=== PATIENT | female | born 1965 | race Caucasian/White ===

== ENCOUNTER 2024-01-31 06:03 | Observation (INO) ==
--- NOTE | 2024-01-10 12:50 | PAT Medication Instructions ---
Medication Instructions Date of Service January 10, 2024 Home Medications atorvastatin 20 mg tablet (Lipitor) 20 mg PO QAM levothyroxine 88 mcg tablet (Synthroid) 88 mcg PO Q OTHER DAY pregabalin 150 mg capsule (Lyrica) 150 mg PO TID tramadol 50 mg tablet 50 mg PO Q6H PRN Pain budesonide 160 mcg-glycopyr 9 mcg-formot 4.8 mcg/actuation HFA inhaler (Breztri Aerosphere) 2 inh inhalation BID levothyroxine 100 mcg tablet (Synthroid) 100 mcg PO Q OTHER DAY celecoxib 200 mg capsule (Celebrex) 200 mg PO BID esomeprazole magnesium 40 mg capsule,delayed release (Nexium) 20 mg PO QAM hydrocodone 5 mg-acetaminophen 325 mg tablet 1 tab PO Q6H PRN Pain lorazepam 0.5 mg tablet 0.5 mg PO TID PRN Anxiety ASK your surgeon for instructions celecoxib 200 mg capsule (Celebrex) 200 mg PO BID Take morning of surgery With a small sip of water, OTHERWISE NOTHING TO EAT OR DRINK AFTER MIDNIGHT: atorvastatin 20 mg tablet (Lipitor) 20 mg PO QAM pregabalin 150 mg capsule (Lyrica) 150 mg PO TID tramadol 50 mg tablet 50 mg PO Q6H PRN Pain (if needed) budesonide 160 mcg-glycopyr 9 mcg-formot 4.8 mcg/actuation HFA inhaler (Breztri Aerosphere) 2 inh inhalation BID levothyroxine (Synthroid) esomeprazole magnesium 40 mg capsule,delayed release (Nexium) 20 mg PO QAM hydrocodone 5 mg-acetaminophen 325 mg tablet 1 tab PO Q6H PRN Pain (if needed) lorazepam 0.5 mg tablet 0.5 mg PO TID PRN Anxiety (if needed) Take evening before surgery pregabalin 150 mg capsule (Lyrica) 150 mg PO TID tramadol 50 mg tablet 50 mg PO Q6H PRN Pain (if needed) budesonide 160 mcg-glycopyr 9 mcg-formot 4.8 mcg/actuation HFA inhaler (Breztri Aerosphere) 2 inh inhalation BID celecoxib 200 mg capsule (Celebrex) 200 mg PO BID hydrocodone 5 mg-acetaminophen 325 mg tablet 1 tab PO Q6H PRN Pain (if needed) lorazepam 0.5 mg tablet 0.5 mg PO TID PRN Anxiety (if needed) Other Notes If you have any questions please call us at [phone] or [phone] or [phone] or [phone]
--- NOTE | 2024-01-16 12:58 | Anesthesiology Consultation ---
Date of Service January 16, 2024 Assessment & Plan (1) Encounter for pre-operative examination: - Infectious disease screening: Per assessment on 01/16/24: No known recent infectious disease contacts or current infectious disease symptoms. - Patient acceptable risk for surgery pending surgeon-ordered PCP preop evaluation ([facility], appt 01/23). Chart Review Chart Review: Patient seen in Pre Admission Testing Teaching & Discussion Pre-Anesthesia Teaching/Discussion Notes: Instructed NPO after midnight before s urgery,except medications with 15 cc of water. Medication instructions provided according to the PAT guidelines. History Surgery Operation Date: 01/31/24 10:05 Proposed Procedures p C4-C5, C5-C6 Anterior Cervical Discectomy and Fusion, Spinal Cord Monitoring - Roland Gutierrez DO Height/Weight Height: 5 ft 6.5 in Weight: 65.5 kg Allergies Allergy/AdvReac Type Severity Reaction Status Date / Time No Known Allergies Allergy Verified 01/10/24 09:39 Medications Home Medications Medication Instructions Recorded Confirmed Last Taken atorvastatin 20 mg tablet (Lipitor) 20 mg PO QAM 04/23/23 01/10/24 Unknown levothyroxine 88 mcg tablet 88 mcg PO Q OTHER DAY 04/23/23 01/10/24 Unknown (Synthroid) pregabalin 150 mg capsule (Lyrica) 150 mg PO TID 04/23/23 01/10/24 Unknown tramadol 50 mg tablet 50 mg PO Q6H PRN Pain 04/23/23 01/10/24 Unknown budesonide 160 mcg-glycopyr 9 2 inh inhalation BID 07/03/23 01/10/24 Unknown mcg-formot 4.8 mcg/actuation HFA inhaler (Breztri Aerosphere) levothyroxine 100 mcg tablet 100 mcg PO Q OTHER DAY 07/03/23 01/10/24 Unknown (Synthroid) celecoxib 200 mg capsule (Celebrex) 200 mg PO BID 01/10/24 01/10/24 Unknown esomeprazole magnesium 40 mg 20 mg PO QAM 01/10/24 01/10/24 Unknown capsule,delayed release (Nexium) hydrocodone 5 mg-acetaminophen 325 1 tab PO Q6H PRN Pain 01/10/24 01/10/24 Unknown mg tablet lorazepam 0.5 mg tablet 0.5 mg PO TID PRN Anxiety 01/10/24 01/10/24 Unknown Past Medical History Medical History Acid reflux Anxiety Carpal tunnel syndrome Cervical facet joint syndrome Cervical spondylosis Cervicalgia COPD (chronic obstructive pulmonary disease) "controlled" Diverticular disease Benny thyroiditis "controlled" History of COVID-2020 History of kidney stones passed on own Hx of sciatica Hypothyroid Lumbar pain hx of 3 nerve ablations Migraine Osteoarthritis Exercise / Class Metabolic Activity II 4-5 Yardwork/Stairs/Walk up hill (one FS: No CP, no SOB) Past Family History Family History Father Heart disease Hypertension Mother Heart disease Daughter History of anesthesia reaction got hives and itching, given benadryl post op and was then okay Past Surgical History Surgical History H/O hemorrhoidectomy H/O tubal ligation History of bilateral tubal ligation History of colonoscopy History of dilatation and curettage History of endoscopic sinus surgery History of tooth extraction Past Anesthesia History No Hx of Anesthesia Complications * Daughter: had redness/itchy in reaction to medication given to her prior to going back for surgery- resolved with Benadryl History of PONV No Hx of PONV and No Hx of Motion Sickness Social History Smoking Status: Former smoker Do You Dip or Chew Tobacco: No Smoking End Date: Quit 12 yrs ago Hx Alcohol Use: Yes Alcohol type: wine alcohol intake frequency: a few times a month (At month) Hx Substance Use: No substance use type: does not use Review of Systems Patient denies chest pain, shortness of breath, dyspnea on exertion, fever, chills, cough, wheezing, palpitations. Physical Exam Vital Signs BP 113/63 P 80 TEMP 98.2 SP02 99%RA RESP 18 Physical Mildly decreased cervical extension range of motion. Full TMJ range of motion. TMD > 3.5 finger breaths Mallampati Score II Dentition: full upper plate Lungs: clear throughout to auscultation Cardiac: regular rate and rhythm, no murmurs noted Spine: normal Carotid arteries: negative bruit Extremities: no LE edema Lab Results Anesthesia Preop Results Results Anesthesia Widget: WBC 10.65 K/ul (4.8-10.8) 01/16/24 Hgb 14.7 g/dl (12.0-16.0) 01/16/24 Hct 43.6 % (37.0-47.0) 01/16/24 Plt 196 K/uL (130-400) 01/16/24 Na 141 mmol/L (136-145) 01/16/24 K 3.9 mmol/L (3.5-5.1) 01/16/24 Cl 106 mmol/L (98-107) 01/16/24 CO2 30 mmol/L (21-32) 01/16/24 BUN 15 mg/dl (6-23) 01/16/24 Creat 0.64 mg/dl (0.6-1.2) 01/16/24 Glucose Level 74 mg/dl (70-99(Fasting)) 01/16/24 PT 10.3 Seconds (9.0-12.0) 01/16/24 PTT 25 Seconds (21-31) 01/16/24 INR 0.9 (0.9-1.1) 01/16/24 Urine Color Yellow 01/16/24 Urine Appearance Clear (Clear) 01/16/24 Urine pH 6.5 (4.5-7.5) 01/16/24 Urine Specific [place] 1.005 (1.000-1.030) 01/16/24 Urine Protein Negative (Negative) 01/16/24 Urine Glucose (UA) Negative (Negative) 01/16/24 Urine Ketones Negative (Negative) 01/16/24 Urine Blood Negative (Negative) 01/16/24 Urine Nitrite Negative (Negative) 01/16/24 Urine Bilirubin Negative (Negative) 01/16/24 Urine Urobilinogen Negative (Negative) 01/16/24 Urine Leukocyte Esterase Negative (Negative) 01/16/24 Blood Type B Positive 01/16/24 Antibody Screen NEGATIVE 01/16/24 Testing Laboratory Results TSH (01/01/24): 0.42 Electrocardiogram Date: 01/16/24 NSR at 75bpm. LAFB. Chest X-Ray Date: 01/16/24 FINDINGS: The lungs are hyperexpanded. The lungs are clear. Cardiac silhouette is normal in size. No pleural effusions. No pneumothorax. IMPRESSION: No acute process.
--- OUTSIDE RECORDS SUMMARY | 2024-01-31 06:09 | External Medical Summary | Summary of Care ---
Author Name Unknown Organization [facility] Address [address] [facility] [place] [address] Phone [phone] Care Team Providers Care Slackline Operator Name Role Phone Leander Paredes MD Primary Care Provider [phone] Reason for Visit * Reason Comments pre-op exam Pt here for pre-op e xam for UOC for Dr Gutierrez, for back surgery on 01/31/24. 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; Migraine with aura and without status migrainosus, not intractable; BREANNE (generalized anxiety disorder); Dyslipidemia; Generalized osteoarthritis Allergies No known active allergiesdocumented as of this encounter (statuses as of 01/24/2024) Medications Medication Sig Dispensed Refills Start Date End Date Status Celecoxib 200 MG Oral Capsule (CeleBREX) TAKE 1 Capsule BY MOUTH TWICE DAILY FOR INFLAMMATION AND PAIN 10/02/2023 Active Lidocaine 5 % External Patch (Lidoderm) APPLY 1 PATCH BY TOPICAL ROUTE ONCE DAILY (MAY WEAR UP TO 12HOURS.) 09/09/2023 Active Atorvastatin Calcium 20 MG Oral Tablet (Lipitor)Indication s:Dyslipidemia Take 1 Tablet by mouth in the morning. In the morning.. 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 ALTERNATE WITH 88MCG. 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 ALTERNATE WITH 100MCG 45 Tablet 3 12/04/2023 Active Amoxicillin-Pot Clavulanate 875-125 MG Oral Tablet (Augmentin)Indicati ons:Bronchitis, complicated,Acute maxillary sinusitis, recurrence not specified Take 1 Tablet by mouth in the morning and 1 Tablet before bedtime. 20 Tablet 12/05/2023 Active predniSONE 20 MG Oral Tablet (Deltasone)Indicati ons:Bronchitis, complicated,Acute maxillary sinusitis, recurrence not specified Take 2 Tablets by mouth in the morning. 10 Tablet 12/05/2023 Active traMADol HCl 50 MG Oral Tablet (Ultram)Indications :DDD (degenerative disc disease), cervical Take 1 Tablet by mouth every 6 hours as needed for Pain, Severe. 30 Tablet 12/31/2023 Active LORazepam 0.5 MG Oral Tablet (Ativan)Indications :Panic disorder Take 1 Tablet by mouth 3 times a day as needed for Anxiety. 30 Tablet 01/14/2024 Active HYDROcodone-Acetami nophen 5-325 MG Oral TabletIndications:C hronic neck pain Take 1 Tablet by mouth every 6 hours as needed for Pain, Severe. 30 Tablet 01/21/2024 Active Pregabalin 150 MG Oral Capsule (Lyrica)Indications :DDD (degenerative disc disease), cervical Take 1 Capsule by mouth in the morning and 1 Capsule at noon and 1 Capsule before bedtime. 90 Capsule 1 01/22/2024 Active Breztri Aerosphere 160-9-4.8 MCG/ACT Inhalation Aerosol (Budeson-Glycopyrro l-Formoterol)Indica tions:COPD, group B, by GOLD 2017 classification ([facility]) INHALE 2 PUFFS BY MOUTH TWICE DAILY 10.7 g 5 01/24/2024 Active Albuterol Sulfate HFA 108 (90 Base) MCG/ACT Inhalation Aerosol SolutionIndications :COPD, group B, by GOLD 2017 classification ([facility]) Inhale 2 Puffs by mouth every 6 hours as needed for Shortness of Breath. 13.4 g 1 01/24/2024 Active Breztri Aerosphere 160-9-4.8 MCG/ACT Inhalation Aerosol (Budeson-Glycopyrro l-Formoterol) INHALE 2 PUFFS BY MOUTH TWICE DAILY 10.7 g 5 11/20/2023 01/24/20 24 Discontinu ed(Refill) Breztri Aerosphere 160-9-4.8 MCG/ACT Inhalation Aerosol (Budeson-Glycopyrro l-Formoterol)Indica tions:COPD, group B, by GOLD 2017 classification ([facility]) INHALE 2 PUFFS BY MOUTH TWICE DAILY 10.7 g 5 01/24/2024 01/24/20 24 Discontinu ed(Refill) documented as of this encounter (statuses as of 01/24/2024) Active Problems Problem Noted Date Diagnosed Date BREANNE (generalized anxiety disorder) 01/01/2024 Chronic neck pain 03/21/2023 Dyslipidemia 09/24/2022 Generalized osteoarthritis 09/24/2022 COPD, group B, by GOLD 2017 classification 09/03 Overview: Per COPD GOLD Classification DDD (degenerative disc disease), cervical 2021 Diverticulosis of large intestine with hemorrhag e 09/25/2021 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 Migraine with aura and witho ut status migrainosus, not intractable documented as of this encounter (statuses as of 01/24/2024) Resolved Problems Problem Noted Date Diagnosed Date Resolved Date Acquired hypothyroidism 09/25/2021 05/0 06/2021 COPD, severity to be determined 09/25/2021 09/06/2022 Overview: Per COPD GOLD Classification Tobacco use disorder 022 documented as of this encounter (statuses as of 01/24/2024) Social History Tobacco Use Types Packs/Day Years Used Date Smoking Tobacco: Former Cigarettes 0.5 14 Smokeless Tobacco: Never Tobacco Cessation:Counseling Given: Not Answered Alcohol Use Standard Drinks/Week Comments Yes 0 (1 standard drink = 0.6 oz pur e alcohol) occaisonal Hunger Vital Sign Answer Date Recorded Within the past 12 months, y ou worried that your food would run out before you got the money to buy more. Never true 09/03/19 24 Within the past 12 months, t he food you bought just didn't last and you didn't have money to get more. Never true 09/03/2023 Childcare Answer Date Recorded Do you feel overwhelmed with taking care of a child, family member or friend? No 09/03/2023 Does your family need help f inding childcare? (Household - for ages 0-17 years) Not on file 09/03/2023 Clothing Answer Date Recorded Have you been unable to get clothing when it was really needed? No 09/03/2023 Is your family able to get c lothes or diapers when needed? (Household - for ages 0-17 years) Not on file 09/03/2023 Personal Safety Answer Date Recorded Do you feel unsafe or have concerns for your saf ety? No 09/03/2023 Do you have concerns for you r family's safety? (Household - for ages 0-17 years) Not on file 09/03/2023 Utilities Answer Date Recorded Do you have trouble paying y our heating, water, or electric bill? No 09/03/2023 Is your family able to pay t he heat, water, or electric bill? (Household - for ages 0-17 years) Not on file 09/03/2023 Does your family have access to good internet? (Household - for ages 0-17 years) Not on file 09/03/2023 Employment Status Answer Date Recorded Are you unemployed or without regular income? No 09/03/2023 Does the household have a re gular source of income? (Household - for ages 0-17 years) Not on file 09/03/2023 Social Connections Answer Date Recorded How often do you feel lonely or isolated from th ose around you? Never 09/03/2023 Financial Resource Strain Answer Date R ecorded Do you have any trouble payi ng for your medications, or do you think you might in the future? No 09/03/2023 Does your family have troubl e paying for medicine? (Household - for ages 0-17 years) Not on file 09/03/2023 Transportation Needs Answer Date Record ed READ ONLY Do you have troubl e getting a ride to medical visits or work? Never True 09/03/2023 Does your family have a hard time getting a ride to doctors visits? (Household - for ages 0-17 years) Not on file 09/03/2023 Has lack of transportation k ept you from medical appointments, meetings, work, or from getting things needed for daily living? Check all that apply. (Adult - for ages 18 years and over) Not on file 09/03/2023 Do you (or your family) have trouble finding or paying for a ride (transportation)? (Household - for ages 0-17 years) Not on file 09/03/2023 Housing Stability Answer Date Recorded Do you currently live in a s helter or have no steady place to sleep at night? No 09/03/2023 READ ONLY Do you think you a re at risk of becoming homeless? No 09/03/2023 Does your family worry about paying for your home or becoming homeless? (Household - for ages 0-17 years) Not on file 0 09/03/2023 Are you homeless or worried that you might be in the future? (Adult - for ages 18 years and over) Not on file Are you (or your family) adalid eless or worried that you might be in the future? (Household - for ages 0-17 years) Not on file Food Insecurity Answer Date Recorded Do you need food for this week? No 09/03/2023 Are you able to get enough f ood for your family? (Household - for ages 0-17 years) Not on file 09/03/2023 Does your family need food t his week? (Household - for ages 0-17 years) Not on file 09/03/2023 Do you always have enough fo od for your family? (Household - for ages 0-17 years) Not on file 09/03/2023 Sex and Gender Information Value Date Recorded Sex Assigned at Female 08/28/2022 8:07 AM EDT Gender Identity Female 08/28/2022 8:07 AM EDT Sexual Orientation Straight 08/28/2022 8: 07 AM EDT Job Start Date Occupation Industry Not on file Not on file Not on file documented as of this encounter Last Filed Vital Signs Vital Sign Reading Time Taken Comments Blood Pressure 100/64 01/24/2024 6:59 AM EDT Pulse 57 01/24/2024 6:59 AM EDT Temperature 36.7 C (98 F) 01/24/2024 6:59 AM EDT Respiratory Rate 18 01/24/2024 6:59 AM EDT Oxygen Saturation - - Inhaled Oxygen Concentration - - Weight 65.3 kg (144 lb) 01/24/2024 6:59 AM EDT Height - - Body Mass Index 22.22 10/14/2023 2:34 PM EDT documented in this encounter Plan of Treatment Upcoming Encounters Date Type Department Care Team (Late st Contact Info) Description 04/03/2024 9:20 AM EST Office Visit [facility] [address] [place] [address] Leander Paredes MD [address] [place] [address] Health Maintenance Due Date Last Done Comments Pneumococcal Vaccine: Pediatrics (0 to 5 Years) and At-Risk Patients (6 to 64 Years) (1 of 2 - PCV) 1972 Depression Screening 1978 HIV Screening 1981 Alpha-1 Antitrypsin 1984 Hepatitis C Screening 1984 DTap/Tdap Vaccines (1 - Tdap) 1985 Hepatitis B Vaccine (1 of 3 - 19+ 3-dose series) 1985 Pap Smear 11/25/1987 Cervical Cancer Screening 1996 HPV/Co-Test 1996 Mammogram 2006 Cologuard 11/25/2011 Colonoscopy 11/25/2011 Colorectal Cancer Screening 11/25/2011 Fecal Occult Blood Test 11/25/2011 Sigmoidoscopy 11/25/2011 *COPD SEVERITY VERIFIED BY PFT 09/29/2021 COVID-19 Vaccine ( season) 2023 10/21/2020, 09/23/2020 Influenza Vaccine (FLU shot) (#1) 2024 04/12/2020 O2 ASSESSMENT COMPLETED IN PAST YEAR FOR COPD 10/13/2024 10/14/2023 TSH 12/31/2024 01/01/2024, 09/24, 09/03/2023, Additional history exists Lipid Panel 12/31/2028 01/01/2024, 11/2023, 09/25/2021 Zoster Vaccines Completed 06/21/2020, 04/12/2020 HPV (Gardasil) Vaccine Aged Out No lo nger eligible based on patient's age to complete this topic MENINGOCOCCAL (MENACTRA/MENVEO) Aged Out No longer eligible based on patient's age to complete this topic documented as of this encounter Medical Devices Not on filedocumented as of this encounter Visit Diagnoses Diagnosis Preop examination- Primary Preoperative examination, unspecified COPD, group B, by GOLD 2017 classification (HCC) Chronic neck pain Cervicalgia 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
--- OUTSIDE RECORDS SUMMARY | 2024-01-31 06:09 | External Medical Summary | Summary of Care ---
Author Name Unknown Organization [facility] Address [address] [facility] [place] [address] Phone [phone] Care Team Providers Care Tab Machine Operator Name Role Phone Leander Paredes MD Primary Care Provider [phone] [phone] Encounter Details Date Type Department Care Team (Late st Contact Info) Description 01/17/2024 Orders Only Family Practice [facility] [address] [facility] [place] [address] Leander Paredes MD [address] [facility] [place] [address] Allergies No known active allergiesdocumented as of this encounter (statuses as of 01/17/2024) Medications Medication Sig Dispensed Refills Start Date End Date Status Baclofen 20 MG Oral TabletIndications: DDD (degenerative disc disease), cervical Take 1 Tablet by mouth in the morning and 1 Tablet before bedtime. 60 Tablet 1 05/09/2023 Active Pregabalin 150 MG Oral Capsule (Lyrica)Indication s:DDD (degenerative disc disease), cervical Take 1 Capsule by mouth in the morning and 1 Capsule at noon and 1 Capsule before bedtime. 90 Capsule 1 09/04/2023 Active Celecoxib 200 MG Oral Capsule (CeleBREX) TAKE 1 Capsule BY MOUTH TWICE DAILY FOR INFLAMMATION AND PAIN 10/02/2023 Active Lidocaine 5 % External Patch (Lidoderm) APPLY 1 PATCH BY TOPICAL ROUTE ONCE DAILY (MAY WEAR UP TO 12HOURS.) 09/09/2023 Active Breztri Aerosphere 160-9-4.8 MCG/ACT Inhalation Aerosol (Budeson-Glycopyrr ol-Formoterol) INHALE 2 PUFFS BY MOUTH TWICE DAILY 10.7 g 5 11/20/2023 Active Atorvastatin Calcium 20 MG Oral Tablet (Lipitor)Indicatio ns:Dyslipidemia Take 1 Tablet by mouth in the morning. In the morning.. 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 ALTERNATE WITH 88MCG. 45 Tablet 3 12/04/2023 Active Levothyroxine Sodium 88 MCG Oral Tablet (Synthroid)Indicat ions:Hypothyroidis m due to Benny's thyroiditis Take 1 Tablet by mouth every other day. ALTERNATE WITH 100MCG 45 Tablet 3 12/04/2023 Active Amoxicillin-Pot Clavulanate 875-125 MG Oral Tablet (Augmentin)Indicat ions:Bronchitis, complicated,Acute maxillary sinusitis, recurrence not specified Take 1 Tablet by mouth in the morning and 1 Tablet before bedtime. 20 Tablet 12/05/2023 Active predniSONE 20 MG Oral Tablet (Deltasone)Indicat ions:Bronchitis, complicated,Acute maxillary sinusitis, recurrence not specified Take 2 Tablets by mouth in the morning. 10 Tablet 12/05/2023 Active HYDROcodone-Acetam inophen 5-325 MG Oral TabletIndications: Chronic neck pain Take 1 Tablet by mouth every 6 hours as needed for Pain, Mild. 30 Tablet 12/18/2023 Active traMADol HCl 50 MG Oral Tablet (Ultram)Indication s:DDD (degenerative disc disease), cervical Take 1 Tablet by mouth every 6 hours as needed for Pain, Severe. 30 Tablet 12/31/2023 Active LORazepam 0.5 MG Oral Tablet (Ativan)Indication s:Panic disorder Take 1 Tablet by mouth 3 times a day as needed for Anxiety. 30 Tablet 01/14/2024 Active documented as of this encounter (statuses as of 01/17/2024) Active Problems Problem Noted Date Diagnosed Date [...] as of this encounter (statuses as of 01/17/2024) Resolved Problems Problem Noted Date Diagnosed Date Resolved Date Acquired hypothyroidism 09/25/2021 05/0 06/2021 COPD, severity to be determined 09/25/2021 09/06/2022 Overview: Per COPD GOLD Classification Tobacco use disorder 022 documented as of this encounter (statuses as of 01/17/2024) Social History Tobacco Use Types Packs/Day Years Used Date Smoking Tobacco: Former Cigarettes 0.5 14 Smokeless Tobacco: Never Alcohol Use Standard Drinks/Week Comments Yes 0 (1 standard drink = 0.6 oz pur e alcohol) occasional Hunger Vital Sign Answer Date Recorded Within [...] 09/03/2023 Does the household have a re lar source of income? (Household - for ages [...] on file documented as of this encounter Plan of Treatment Upcoming Encounters Date Type Department Care Team (Late st Contact Info) Description 01/24/2024 7:00 AM EDT Office Visit [facility] [address] [place] [address] Maikol Teran CRNP [address] [place] [address] 04/03/2024 9:20 AM EST Office Visit [facility] [address] [place] [address] Leander Paredes MD [address] [place] [address] Health Maintenance Due Date Last Done Comments Pneumococcal Vaccine: Pediatrics (0 to 5 Years) and At-Risk Patients (6 to 64 Years) (1 of 2 - PCV) 1972 Depression Screening 1978 HIV Screening 1981 Alpha-1 Antitrypsin 1984 Hepatitis C Screening 1984 DTaP,Tdap,and Td Vaccines (1 - Tdap) 1985 Hepatitis B Vaccine (1 of 3 - 19+ 3-dose series) 1985 Pap Smear 11/25/1987 Cervical Cancer Screening 1996 HPV/Co-Test 1996 Mammogram 2006 Cologuard 11/25/2011 Colonoscopy 11/25/2011 Colorectal Cancer Screening 11/25/2011 Fecal Occult Blood Test 11/25/2011 Sigmoidoscopy 11/25/2011 *COPD SEVERITY VERIFIED BY PFT 09/29/2021 *CXR OR CT FOR COPD EVER 04/19/2022 COVID-19 Vaccine ( season) 2023 10/21/2020, 09/23/2020 Influenza Vaccine (FLU shot) (#1) 2024 04/12/2020 O2 ASSESSMENT COMPLETED IN PAST YEAR FOR COPD 10/13/2024 10/14/2023 TSH 12/31/2024 01/01/2024, 09/24, 09/03/2023, Additional history exists Lipid Panel 12/31/2028 01/01/2024, 0811/2023, 09/25/2021 Zoster Vaccines Completed 06/21/2020, 04/12/2020 HPV (Gardasil) Vaccine Aged Out No lo nger eligible based on patient's age to complete this topic MENINGOCOCCAL (MENACTRA/MENVEO) Aged Out No longer eligible based on patient's age to complete this topic documented as of this encounter Medical Devices Not on filedocumented as of this encounter Procedures Procedure Name Priority Date/Time Associated Diagnosis Comments XR CHEST 2 VIEWS Routine 01/16/2024 CHEMISTRY-OUTSIDE Routine 01/16/2024 documented in this encounter Results * CHEMISTRY-OUTSIDE (01/16/2024) Not all results display below - see scan for full detail OUTSIDE LAB (SEE SCANNED REPORT) Comment:SCAN INCLUDES - PT I NR, PTT, BMP, UA, CBCD CREATININE-OUTSI DE LAB 0.64 0.6 - 1.2 MG/DL OUTSIDE LAB (SEE SCANNED REPORT) EGFR-OUTSIDE LAB 99.1 ML/MIN OUT SIDE LAB (SEE SCANNED REPORT) POTASSIUM-OUTSID E LAB 3.9 3.5 - 5.1 MMOL/L OUTSIDE LAB (SEE SCANNED REPORT) GLUCOSE-OUTSIDE LAB 74 70 - 99 MG/DL OUTSIDE LAB (SEE SCANNED REPORT) HOURS FASTING OUTSID E LAB (SEE SCANNED REPORT) TRIGLYCERIDES-OU TSIDE LAB OUTSIDE LAB (SEE SCANNED REPORT) CHOLESTEROL-OUTS ERNA LAB OUTSIDE LAB (SEE SCANNED REPORT) HDL-OUTSIDE LAB OUTS ERNA LAB (SEE SCANNED REPORT) CHOL/HDL RATIO-OUTSIDE LAB OUTSIDE LAB (SEE SCANNED REPORT) LDL (CALCULATED)-OUT SIDE LAB OUTSIDE LAB (SEE SCANNED REPORT) LDL (DIRECT MEASURE)-OUTSIDE LAB OUTSIDE LAB (SEE SCANNED REPORT) HEMOGLOBIN, F2W-YNWOWBL LAB OUTSIDE LAB (SEE SCANNED REPORT) PHOSPHORUS-OUTSI DE LAB OUTSIDE LAB (SEE SCANNED REPORT) PTH-OUTSIDE LAB OUTS ERNA LAB (SEE SCANNED REPORT) MICROALBUMIN RATIO-OUTSIDE LAB OUTSIDE LAB (SEE SCANNED REPORT) PROTEIN, UA-OUTSIDE LAB NEGATIVE NEGATIVE OUTSIDE LAB (SEE SCANNED REPORT) HGB 14.7 12.0 - 16.0 G/DL OUTSIDE LAB (SEE SCANNED REPORT) 01/16/2024 Roland Gutierrez DO LABORATORY OUTSIDE LAB (SEE SCANNED REPORT) * XR CHEST 2 VIEWS (01/16/2024) Anatomical Region Laterality Modality Chest Other 01/16/2024 Roland Gutierrez DO RADIOLOGY ( RAD GENERAL) documented in this encounter Care Teams Tab Machine Operator Relationship Specialty Start Date End Date Leander Paredes MD [address] [facility] [place] [address] PCP - General Family Medicine 09/25/21 documented as of this encounter
--- OUTSIDE RECORDS SUMMARY | 2024-01-31 06:09 | External Medical Summary | Summary of Care ---
Author Name Unknown Organization [facility] Address [address] [facility] [address] Phone [phone] Care Team Providers Care Insurance Job Titles Name Role Phone Carla Farley MD Primary Care Provider [phone] [phone] Reason for Referral * Medication Prior Authorization - Closed Specialty Diagnoses / Procedures Referred By Vincent nieto Referred To Contact Diagnoses Chronic neck pain Carla Farley MD [address] [place] [address] Referral ID Status Reason Start Date Expiration Date Visits Re quested Visits Authorized [id number] Closed 999 225 Reason for Visit * Reason Onset Date Comments Medication Refill 01/19/2024 Encounter Details Date Type Department Care Team (Late st Contact Info) Description 01/19/2024 Refill Family Practice [facility] [address] [place] [address] Carla Farley MD [address] [place] [address] Chronic neck pain Allergies No known active allergiesdocumented as of this encounter (statuses as of 01/21/2024) Medications Medication Sig Dispensed Refills Start Date End Date Status Baclofen 20 MG Oral TabletIndications :DDD (degenerative disc disease), cervical Take 1 Tablet by mouth in the morning and 1 Tablet before bedtime. 60 Tablet 1 05/09/2023 Active Pregabalin 150 MG Oral Capsule (Lyrica)Indicatio ns:DDD (degenerative disc disease), cervical Take 1 Capsule [...] Active Breztri Aerosphere 160-9-4.8 MCG/ACT Inhalation Aerosol (Budeson-Glycopyr rol-Formoterol) INHALE 2 PUFFS BY MOUTH TWICE DAILY 10.7 g 5 11/20/2023 Active Atorvastatin Calcium 20 MG Oral Tablet (Lipitor)Indicati ons:Dyslipidemia Take 1 Tablet by mouth in the morning. In the morning.. 90 Tablet 12/02/2023 Active Levothyroxine Sodium 100 MCG Oral Tablet (Levoxyl)Indicati ons:Hypothyroidis m due to Benny's thyroiditis Take 1 Tablet by mouth every other day. ALTERNATE WITH 88MCG. 45 Tablet 3 12/04/2023 Active Levothyroxine Sodium 88 MCG Oral Tablet (Synthroid)Indica tions:Hypothyroid ism due to Benny's thyroiditis Take 1 Tablet by mouth every other day. ALTERNATE WITH 100MCG 45 Tablet 3 12/04/2023 Active Amoxicillin-Pot Clavulanate 875-125 MG Oral Tablet (Augmentin)Indica tions:Bronchitis, complicated,Acute maxillary sinusitis, recurrence not specified Take 1 Tablet by mouth in the morning and 1 Tablet before bedtime. 20 Tablet 12/05/2023 Active predniSONE 20 MG Oral Tablet (Deltasone)Indica tions:Bronchitis, complicated,Acute maxillary sinusitis, recurrence not specified Take 2 Tablets by mouth in the morning. 10 Tablet 12/05/2023 Active traMADol HCl 50 MG Oral Tablet (Ultram)Indicatio ns:DDD (degenerative disc disease), cervical Take 1 Tablet by mouth every 6 hours as needed for Pain, Severe. 30 Tablet 12/31/2023 Active LORazepam 0.5 MG Oral Tablet (Ativan)Indicatio ns:Panic disorder Take 1 Tablet by mouth 3 times a day as needed for Anxiety. 30 Tablet 01/14/2024 Active HYDROcodone-Aceta minophen 5-325 MG Oral TabletIndications :Chronic neck pain Take 1 Tablet by mouth every 6 hours as needed for Pain, Severe. 30 Tablet 01/21/2024 Active HYDROcodone-Aceta minophen 5-325 MG Oral TabletIndications :Chronic neck pain Take 1 Tablet by mouth every 6 hours as needed for Pain, Mild. 30 Tablet 12/18/2023 Discontinue d(Refill) documented as of this encounter (statuses as of 01/21/2024) Active Problems Problem Noted Date Diagnosed Date [...] as of this encounter (statuses as of 01/21/2024) Resolved Problems Problem Noted Date Diagnosed Date Resolved Date Acquired hypothyroidism 09/25/2021 05/0 06/2021 COPD, severity to be determined 09/25/2021 09/06/2022 Overview: Per COPD GOLD Classification Tobacco use disorder 022 documented as of this encounter (statuses as of 01/21/2024) Social History Tobacco Use Types Packs/Day Years [...] on file documented as of this encounter Miscellaneous Notes * Telephone Encounter - Carla Farley MD - 01/21/2024 11:17 AM EDTSigned Prescriptions: Disp Refills HYDROcodone-Acetaminophen 5-325 MG Oral Ta*30 Tab*0 Sig: Take 1 Tablet by mouth every 6 hours as needed for Pain, Severe. Authorizing Provider: CARLA FARLEY * Telephone Encounter - Gorge Rivera [facility] - 01/21/2024 11:10 AM EDT Pending Prescriptions: Disp Refills HYDROcodone-Acetaminophen 5-325 MG Oral Ta*30 Tab*0 Sig: Take 1 Tablet by mouth every 6 hours as needed for Pain, Mild. * Telephone Encounter - Gorge Rivera [facility] - 01/21/2024 10:56 AM EDT I have reviewed the patients controlled substance dispensing history in the Prescription Drug Monitoring Program in compliance with the [facility] regulations before prescribing a controlled substance. PDMP checked on 01/21/2024. Pending Prescriptions: Disp Refills HYDROcodone-Acetaminophen 5-325 MG Oral T*30 Tab*0 Sig: Take 1 Tablet by mouth every 6 hours as needed for Pain, Mild. Last Visit: 10/14/2023 (in office), 01/01/2024 (telemedicine) Next Visit: 01/24/2024 Date medication was last filled: 12/17 Date medication is due for refill: 12/23 Pharmacy: [id number] [address] [place] [address] Is this request for a controlled substance? Yes and Urine Drug Screen Not completed Toxicology results: No results found for this or any previous visit. Please approve if appropriate. Thanks, Gorge Rivera, PharmD Clinical Pharmacist [facility] ([facility]) [phone] 01/21/2024,11:10 AM documented in this encounter Plan of Treatment Upcoming Encounters Date Type Department Care Team (Late st Contact Info) Description 01/24/2024 7:00 AM EDT Office Visit [facility] [address] [place] [address] Maikol Teran CRNP [address] [place] [address] 04/03/2024 9:20 AM EST Office Visit [facility] [address] [place] [address] Carla Farley MD [address] [place] [address] Health Maintenance Due Date Last Done Comments [...] as of this encounter Visit Diagnoses Diagnosis Chronic neck pain Cervicalgia documented in this encounter Care Teams Insurance Job Titles Relationship Specialty Start Date End Date Carla Farley MD [address] [place] [address] PCP - General Family Medicine 09/25/21 documented as of this encounter
--- OUTSIDE RECORDS SUMMARY | 2024-01-31 06:09 | External Medical Summary | Summary of Care ---
Author Name Unknown Organization [facility] Address [address] [facility] [place] [address] Phone [phone] Care Team Providers Care Prevention Coordinator Name Role Phone Leander Paredes MD Primary Care Provider [phone] [phone] Reason for Visit * Reason Onset Date Comments Information 01/28/2024 Encounter Details Date Type Department Care Team (Late st Contact Info) Description 01/28/2024 Telephone Family Practice [facility] [place] [address] Leander Paredes MD [address] [facility] [place] [address] Information Allergies No known active allergiesdocumented as of this encounter (statuses as of 01/28/2024) Medications Medication Sig Dispensed Refills Start Date End Date Status Celecoxib 200 MG Oral Capsule (CeleBREX) TAKE 1 Capsule BY MOUTH TWICE DAILY FOR INFLAMMATION AND PAIN 10/02/2023 Active Lidocaine 5 % External Patch (Lidoderm) APPLY 1 PATCH BY TOPICAL ROUTE ONCE DAILY (MAY WEAR UP TO 12HOURS.) 09/09/2023 Active Atorvastatin Calcium 20 MG Oral Tablet (Lipitor)Indications :Dyslipidemia Take 1 Tablet by mouth in the morning. In the morning.. 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 ALTERNATE WITH 88MCG. 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 ALTERNATE WITH 100MCG 45 Tablet 3 12/04/2023 Active Amoxicillin-Pot Clavulanate 875-125 MG Oral Tablet (Augmentin)Indicatio ns:Bronchitis, complicated,Acute maxillary sinusitis, recurrence not specified Take 1 Tablet by mouth in the morning and 1 Tablet before bedtime. 20 Tablet 12/05/2023 Active predniSONE 20 MG Oral Tablet (Deltasone)Indicatio ns:Bronchitis, complicated,Acute maxillary sinusitis, recurrence not specified Take 2 Tablets by mouth in the morning. 10 Tablet 12/05/2023 Active traMADol HCl 50 MG Oral Tablet (Ultram)Indications: DDD (degenerative disc disease), cervical Take 1 Tablet by mouth every 6 hours as needed for Pain, Severe. 30 Tablet 12/31/2023 Active LORazepam 0.5 MG Oral Tablet (Ativan)Indications: Panic disorder Take 1 Tablet by mouth 3 times a day as needed for Anxiety. 30 Tablet 01/14/2024 Active HYDROcodone-Acetamin ophen 5-325 MG Oral TabletIndications:Ch ronic neck pain Take 1 Tablet by mouth every 6 hours as needed for Pain, Severe. 30 Tablet 01/21/2024 Active Pregabalin 150 MG Oral Capsule (Lyrica)Indications: DDD (degenerative disc disease), cervical Take 1 Capsule by mouth in the morning and 1 Capsule at noon and 1 Capsule before bedtime. 90 Capsule 1 01/22/2024 Active Breztri Aerosphere 160-9-4.8 MCG/ACT Inhalation Aerosol (Budeson-Glycopyrrol -Formoterol)Indicati ons:COPD, group B, by GOLD 2017 classification ([facility]) INHALE 2 PUFFS BY MOUTH TWICE DAILY 10.7 g 5 01/24/2024 Active Albuterol Sulfate HFA 108 (90 Base) MCG/ACT Inhalation Aerosol SolutionIndications: COPD, group B, by GOLD 2017 classification ([facility]) Inhale 2 Puffs by mouth every 6 hours as needed for Shortness of Breath. 13.4 g 1 01/24/2024 Active documented as of this encounter (statuses as of 01/28/2024) Active Problems Problem Noted Date Diagnosed Date [...] as of this encounter (statuses as of 01/28/2024) Resolved Problems Problem Noted Date Diagnosed Date Resolved Date Acquired hypothyroidism 09/25/2021 050 06/2021 COPD, severity to be determined 09/25/2021 09/06/2022 Overview: Per COPD GOLD Classification Tobacco use disorder 022 documented as of this encounter (statuses as of 01/28/2024) Social History Tobacco Use Types Packs/Day Years [...] encounter Miscellaneous Notes * Telephone Encounter - Palak Malcolm OSA - 01/28/2024 12:58 PM EDT Patient has been notified of the message. Patient has no further questions. * Telephone Encounter - Domi Ferrell LPN - 01/28/2024 12:30 PM EDT Called & LMOM for patient to return call to nurse line This information is relating to her pre op assessment. This has nothing to do with her disability or the benefits she receives. This is something that is included in pre-op note. This will NOT effecther disability. The note does not state she can "perform heavy housework". It states her functionalstatus for this procedure is adequate and she "acceptable medical carlos for scheduled surgery" They are able to walk two blocks at a moderate pace. The patient's functional status is adequate (equal to 4 METS). * Telephone Encounter - Radha Gaming OSA - 01/28/2024 12:23 PM EDT Patient called in upset about this again. Can someone please contact patient? [phone]. * Telephone Encounter - Gurmeet Gutierrez publications writer - 01/28/2024 9:08 AM EDT Images from the original note were not included. Pt would like PCP to know she read the notes from [facility] with AGENT TELEGRAPHER and has concerns. Pt stating she cannot perform heavy house work. Caller concerned these notes might affect her disability status. Please advise. Thank you, Gurmeet Gutierrez Diamond Setter I [facility] ([facility]) 01/28/2024,9:10 AM documented in this encounter Plan of Treatment Upcoming Encounters Date Type Department Care Team (Late st Contact Info) Description 04/03/2024 9:20 AM EST Office Visit Family Practice [facility] [address] [facility] [place] [address] Leander Paredes MD [address] [facility] [place] [address] Health Maintenance Due Date Last Done Comments [...] BY PFT 09/29/2021 COVID-19 Vaccine ( season) 2024 10/21/2020, 09/23/2020 Influenza Vaccine (FLU shot) (#1) [...] Not on filedocumented as of this encounter Care Teams Prevention Coordinator Relationship Specialty Start Date End Date Leander Paredes MD [address] [place] [address] PCP - General Family Medicine 09/25/21 documented as of this encounter
--- OUTSIDE RECORDS SUMMARY | 2024-01-31 06:09 | External Medical Summary | Summary of Care ---
Author Name Unknown Organization [facility] Address [address] [facility] [place] [address] Phone [phone] Care Team Providers Care Biology Teacher Name Role Phone Leander Paredes MD Primary Care Provider [phone] [phone] Reason for Visit * Reason Onset Date Comments Med Request 01/28/2024 Encounter Details Date Type Department Care Team (Late st Contact Info) Description 01/28/2024 Telephone Family Practice [facility] [place] [id number] Leander Paredes MD [address] [facility] [place] [address] Med Request Allergies No known active allergiesdocumented as of [...] ons:COPD, group B, by GOLD 2017 classification ([facility]) INHALE 2 PUFFS BY MOUTH TWICE DAILY 10.7 g 5 01/24/2024 Active Albuterol Sulfate HFA 108 (90 Base) MCG/ACT Inhalation Aerosol SolutionIndications: COPD, group B, by GOLD 2017 classification ([facility]) Inhale 2 Puffs by mouth every 6 [...] encounter Miscellaneous Notes * Telephone Encounter - Gurmeet Gutierrez bacon slicer - 01/28/2024 9:02 AM EDT Pt calling to request a prescription to try AirSupra. Pt did not want to schedule an appointment atthis time. Caller asked their pharmacy what the cost would be and they would not provide without a prescription. Pt can be reached at [phone] and uses [id number]/ Thank you, Gurmeet Gutierrez Servicenow Administrator I [facility] ([facility]) 01/28/2024,9:03 AM documented in this encounter Plan of Treatment Upcoming Encounters Date Type Department Care Team (Late st Contact Info) Description 04/03/2024 9:20 AM EST Office Visit Family [facility] [address] [place] [address] Leander Paredes MD [address] [place] [address] Health Maintenance Due Date Last Done Comments [...] filedocumented as of this encounter Care Teams Biology Teacher Relationship Specialty Start Date End Date Leander Paredes MD [address] [place] [address] PCP - General Family Medicine 09/25/21 documented as of this encounter
--- OUTSIDE RECORDS SUMMARY | 2024-01-31 06:09 | External Medical Summary | Summary of Care ---
Author Name Unknown Organization [facility] Address [address] [facility] [place] [address] Phone [phone] Care Team Providers Care Termite Exterminator Name Role Phone Leander Paredes MD Primary Care Provider [phone] [phone] Encounter Details Date Type Department Care Team (Late st Contact Info) Description 01/16/2024 Result Scan Unspecified Department <No scans attached> Allergies No known active allergiesdocumented as of [...] Description 01/24/2024 7:00 AM EDT Office Visit [facility] [address] [place] [address] Maikol Teran CRNP [address] [place] [address] 04/03/2024 9:20 AM EST Office Visit [facility] [address] [place] [address] Leander Paredes MD [address] [place] [address] Health Maintenance Due Date Last Done Comments [...] Procedure Name Priority Date/Time Associated Diagnosis Comments EKG SCANNED RESULT 01/16/2024 documented in this encounter Results * EKG SCANNED RESULT (01/16/2024) 01/16/2024 No Physician Data Unknown EKG documented in this encounter Care Teams Termite Exterminator Relationship Specialty Start Date End Date Leander Paredes MD [address] [place] [address] PCP - General Family Medicine 09/25/21 documented as of this encounter
--- OUTSIDE RECORDS SUMMARY | 2024-01-31 06:09 | External Medical Summary | Summary of Care ---
Author Name Unknown Organization [facility] Address [address] [facility] [place] [address] Phone [phone] Care Team Providers Care Screening Representative Name Role Phone Leander Paredes MD Primary Care Provider [phone] [phone] Reason for Visit * Reason Onset Date Comments Information 01/28/2024 Encounter Details Date Type Department Care Team (Late st Contact Info) Description 01/28/2024 Telephone Family Practice [facility] [place] [address] Leander Paredes MD [address] [facility] [place] [address] Information Allergies No known [...] ons:COPD, group B, by GOLD 2017 classification ([facility]) INHALE 2 PUFFS BY MOUTH TWICE DAILY 10.7 g 5 01/24/2024 Active Albuterol Sulfate HFA 108 (90 Base) MCG/ACT Inhalation Aerosol SolutionIndications: COPD, group B, by GOLD 2017 classification ([facility]) Inhale 2 Puffs by mouth every 6 [...] encounter Miscellaneous Notes * Telephone Encounter - Domi Ferrell LPN [...] this again. Can someone please contact patient? [phone]. * Telephone Encounter - Gurmeet Gutierrez, prototype carpenter - 01/28/2024 9:08 AM EDT Images from the original note were not included. Pt would like PCP to know she read the notes from OV with FACILITY COORDINATOR and has concerns. Pt stating she cannot perform heavy house work. Caller concerned these notes might affect her disability status. Please advise. Thank you, Gurmeet Gutierrez Archaeology Professor I [facility] ([facility]) 01/28/2024,9:10 AM documented in this encounter Plan of Treatment Upcoming Encounters Date Type Department Care Team (Late st Contact Info) Description 04/03/2024 9:20 AM EST Office Visit [facility] [address] [facility] [place] [address] Leander Paredes MD [address] [place] [address] Health Maintenance Due Date Last Done Comments [...] filedocumented as of this encounter Care Teams Screening Representative Relationship Specialty Start Date End Date Leander Paredes MD [address] [place] [address] PCP - General Family Medicine 09/25/21 documented as of this encounter
--- OUTSIDE RECORDS SUMMARY | 2024-01-31 06:09 | External Medical Summary | Summary of Care ---
Author Name Unknown Organization [facility] [address] [facility] [place] [address] Phone [phone] Care Team Providers Care Booth Supervisor Name Role Phone Carla Farley MD Primary Care Provider [phone] [phone] Reason for Visit * Reason Onset Date Comments Medication Refill 01/20/2024 Encounter Details Date Type Department Care Team (Late st Contact Info) Description 01/20/2024 Refill Family Practice [facility] [address] [facility] [place] [address] Carla Farley MD 132 [facility] [place] [address] DDD (degenerative disc disease), cervical Allergies No known active allergiesdocumented as of this encounter (statuses as of 01/22/2024) Medications Medication Sig Dispensed Refills Start Date [...] needed for Anxiety. 30 Tablet 01/14/2024 Active HYDROcodone-Acetam inophen 5-325 MG Oral TabletIndications: Chronic neck pain Take 1 Tablet by mouth every 6 hours as needed for Pain, Severe. 30 Tablet 01/21/2024 Active Pregabalin 150 MG Oral Capsule (Lyrica)Indication s:DDD (degenerative disc disease), cervical Take 1 Capsule by mouth in the morning and 1 Capsule at noon and 1 Capsule before bedtime. 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 Migraine with aura and witho ut status migrainosus, not intractable documented as of this encounter (statuses as of 01/22/2024) Resolved Problems Problem Noted Date Diagnosed Date Resolved Date Acquired hypothyroidism 09/25/2021 05/0 06/2021 COPD, severity to be determined 09/25/2021 09/06/2022 Overview: Per COPD GOLD Classification Tobacco use disorder 022 documented as of this encounter (statuses as of 01/22/2024) Social History Tobacco Use Types Packs/Day Years [...] Telephone Encounter - Carla Farley MD - 01/22/2024 2:33 PM EDTSigned Prescriptions: Disp Refills Pregabalin 150 MG Oral Capsule (Lyrica) 90 Cap*1 Sig: Take 1 Capsule by mouth in the morning and 1 Capsule at noon and 1 Capsule before bedtime. Authorizing Provider: CARLA FARLEY * Telephone Encounter - Alina Frias [facility] - 01/22/2024 12:12 PM EDTPending Prescriptions: Disp Refills Pregabalin 150 MG Oral Capsule (Lyrica) 90 Cap*1 Sig: Take 1 Capsule by mouth in the morning and 1 Capsule at noon and 1 Capsule before bedtime. * Telephone Encounter - Alina Frias RPh - 01/22/2024 12:12 PM EDT Med was discontinued from chart but I do not see a reason as to why. Please approve if appropriate. I have reviewed the patients controlled substance dispensing history in the Prescription Drug Monitoring Program in compliance with the [facility] regulations before prescribing a controlled substance. PDMP checked on 01/22/2024. Pending Prescriptions: Disp Refills Pregabalin 150 MG Oral Capsule (Lyrica) 90 Cap*1 Sig: Take 1 Capsule by mouth in the morning and 1 Capsule at noon and 1 Capsule before bedtime. Last Visit: 10/14/2023 (in office), 01/01/2024 (telemedicine) Next Visit: 01/24/2024 Date medication was last filled: 12/25/23 Date medication is due for refill: 01/23/24 Pharmacy: [id number] [address] [place] [address] Is this request for a controlled substance? Yes and Urine Drug Screen Not completed Toxicology results: No results found for this or any previous visit. Please approve if appropriate. Thanks, Alina Frias Clinical Pharmacist [facility] ([facility]) [phone] 01/22/2024, 12:12 PM documented in this encounter Plan of Treatment Upcoming Encounters Date Type Department Care Team (Late st Contact Info) Description 01/24/2024 7:00 AM EDT Office Visit [facility] [address] [place] [address] Maikol Teran CRNP 132 [place] [address] 04/03/2024 9:20 AM EST Office Visit [facility] [address] [place] [address] Carla Farley MD [address] [place] [address] Health Maintenance Due Date Last Done Comments [...] SEVERITY VERIFIED BY PFT 09/29/2021 COVID-19 Vaccine (2022- season) 2023 10/21/2020, 09/23/2020 Influenza Vaccine (FLU [...] as of this encounter Visit Diagnoses Diagnosis DDD (degenerative disc disease), cervical Degeneration of cervical intervertebral disc documented in this encounter Care Teams Booth Supervisor Relationship Specialty Start Date End Date Carla Farley MD [address] [place] [address] PCP - General Family Medicine 09/25/21 documented as of this encounter
--- OUTSIDE RECORDS SUMMARY | 2024-01-31 06:09 | External Medical Summary | Summary of Care ---
Author Name Unknown Organization [facility] Address [address] [facility] [address] Phone [phone] Care Team Providers Care Prosthodontist Name Role Phone Leander Paredes MD Primary Care Provider [phone] Reason for Visit * Reason Onset Date Comments Forms Request 01/20/2024 FMLA and STD For ms Encounter Details Date Type Department Care Team (Late st Contact Info) Description 01/20/[address] [facility] [place] [address] Lenader Paredes MD 132 [facility] [place] [address] Forms Request (FMLA and STD Forms) Allergies No known active allergiesdocumented as of [...] needed for Anxiety. 30 Tablet 01/14/2024 Active Baclofen 20 MG Oral TabletIndications :DDD (degenerative disc disease), cervical Take 1 Tablet by mouth in the morning and 1 Tablet before bedtime. 60 Tablet 1 05/09/2023 4 Discontinue d(Medicatio n List Clean Up) Pregabalin 150 MG Oral Capsule (Lyrica)Indicatio ns:DDD (degenerative disc disease), cervical Take 1 Capsule by mouth in the morning and 1 Capsule at noon and 1 Capsule before bedtime. 90 Capsule 1 09/04/2023 4 Discontinue d(Medicatio n List Clean Up) documented as of this encounter (statuses as [...] Telephone Encounter - Domi Ferrell LPN - 01/22/2024 2:36 PM EDT Form completed and faxed. Pt aware * Telephone Encounter - Domi Ferrell LPN - 01/21/2024 5:54 PM EDT Located forms. Called patient to clarify what forms are for. (She has upcoming surgery so wanted toconfirm that this wasn't for surgery). Patient extremely tearful crying throughout the phone call explaining her situation with workers comp, disability, FMLA, etc. Patient continuously repeated that she was "emotionally a wreck" and she isn't doing well. Patient talked for over 30 minutes about her situation and how her medication isn't helping her. Encouraged patient to consider SSRI per visit with Maikol. Pt redirected the conversation to her other narcotic pain medication. Forms will be completed joan. * Telephone Encounter - Leander Paredes MD - 01/21/2024 4:47 PM EDT I have no such "packet" on my desk. * Telephone Encounter - Romi Wilburn LPN - 01/21/2024 12:01 PM EDT Packet placed on Reggie's desk to complete. * Telephone Encounter - Abigail Delgadillo OSA - 01/20/2024 1:42 PM EDT Pt calling about the three FMLA/STD forms that she dropped off at [employer] on 01/15 or 01/16. She states they were to be completed by Maikol Teran and then faxed to [employer] at fax number [phone], attdejah Castellanos. Pt states fax number should have been on paperwork but she is providing it in this message in the event it is not. Pt states she is having great hardship with no incoming money and has many bills to pay. She cannotget approved for FMLA without the forms. Please call her to marciale, documented in this encounter Plan of Treatment Upcoming Encounters Date Type Department Care Team (Late st Contact Info) Description 01/24/2024 7:00 AM EDT Office Visit [facility] [address] [place] [address] Maikol Teran CRNP [address] [place] [address] 04/03/2024 9:20 AM EST Office Visit Family Practice [facility] [address] [place] [address] Leander Paredes MD [address] [place] [address] Health Maintenance Due Date Last Done Comments [...] as of this encounter Visit Diagnoses Diagnosis Panic disorder- Primary Panic disorder without agoraphobia BREANNE (generalized anxiety disorder) Generalized anxiety disorder Financial difficulties Inadequate material resources documented in this encounter Care Teams Prosthodontist Relationship Specialty Start Date End Date Leander Paredes MD [address] [place] [address] PCP - General Family Medicine 09/25/21 documented as of this encounter
--- OUTSIDE RECORDS SUMMARY | 2024-01-31 06:09 | External Medical Summary | Summary of Care ---
Author Name Unknown Organization [facility] Address [address] [facility] [place] [address] Phone [phone] Care Team Providers Care Stull Hewer Name Role Phone Leander Paredes MD Primary Care Provider [phone] [phone] Reason for Visit * Reason Onset Date Comments Med Request 01/28/2024 Encounter Details Date Type Department Care Team (Late st Contact Info) Description 01/28/2024 Telephone Family Practice [facility] [place] [phone] Leander Paredes MD 132 [facility] [place] [address] Med Request Allergies [...] ons:COPD, group B, by GOLD 2017 classification ([facility]) INHALE 2 PUFFS BY MOUTH TWICE DAILY 10.7 g 5 01/24/2024 Active Albuterol Sulfate HFA 108 (90 Base) MCG/ACT Inhalation Aerosol SolutionIndications: COPD, group B, by GOLD 2017 classification ([facility]) Inhale 2 Puffs by mouth every 6 [...] Notes * Telephone Encounter - Gurmeet Gutierrez varnish mixer - 01/28/2024 9:02 AM EDT Pt calling to request a prescription to try AirSupra. Pt did not want to schedule an appointment atthis time. Caller asked their pharmacy what the cost would be and they would not provide without a prescription. Pt can be reached at [phone] and uses [id number] [facility]/ Thank you, Gurmeet Gutierrez Computing Consultant I [facility] ([facility]) 01/28/2024,9:03 AM documented in this encounter Plan of Treatment Upcoming Encounters Date Type Department Care Team (Late st Contact Info) Description 04/03/2024 9:20 AM EST Office Visit Family [facility] [address] [place] [address] Leander Paredes MD [address] [place] [address] Health Maintenance Due Date Last Done Comments [...] filedocumented as of this encounter Care Teams Stull Hewer Relationship Specialty Start Date End Date Leander Paredes MD [address] [place] [address] PCP - General Family Medicine 09/25/21 documented as of this encounter
--- OUTSIDE RECORDS SUMMARY | 2024-01-31 06:09 | External Medical Summary | Summary of Care ---
Author Name Unknown Organization [facility] Address [address] [facility] [place] [address] Phone [phone] Care Team Providers Care Bilingual Case Manager Name Role Phone Leander Paredes MD Primary Care Provider [phone] [phone] Reason for Visit * Reason Onset Date Comments Information 01/28/2024 Encounter Details Date Type Department Care Team (Late st Contact Info) Description 01/28/2024 Telephone Family Practice [facility] [address] [facility] [place] [address] Leander Paredes MD 132 [facility] [place] [address] Information Allergies No known [...] ons:COPD, group B, by GOLD 2017 classification ([facility]) INHALE 2 PUFFS BY MOUTH TWICE DAILY 10.7 g 5 01/24/2024 Active Albuterol Sulfate HFA 108 (90 Base) MCG/ACT Inhalation Aerosol SolutionIndications: COPD, group B, by GOLD 2017 classification ([facility]) Inhale 2 Puffs by mouth every 6 [...] this again. Can someone please contact patient? [phone]. * Telephone Encounter - Gurmeet Gutierrez, almond roaster - 01/28/2024 9:08 AM EDT Images from the original note were not included. Pt would like PCP to know she read the notes from OV with FOREIGN STUDENT ADVISER and has concerns. Pt stating she cannot perform heavy house work. Caller concerned these notes might affect her disability status. Please advise. Thank you, Gurmeet Gutierrez Utility Pipe Layer I [facility] ([facility]) 01/28/2024,9:10 AM documented in this encounter Plan of Treatment Upcoming Encounters Date Type Department Care Team (Late st Contact Info) Description 04/03/2024 9:20 AM EST Office Visit Family [facility] [address] [facility] [place] [address] Leander Paredes MD [address] [place] [address] Health Maintenance Due Date Last Done Comments [...] filedocumented as of this encounter Care Teams Bilingual Case Manager Relationship Specialty Start Date End Date Leander Paredes MD [address] [place] [address] PCP - General Family Medicine 09/25/21 documented as of this encounter
[2024-01-31] MEDS ORDERED: ePHEDrine sulfate 50 MG/ML AMP IV PRN (06:30)
[2024-01-31] MEDS ORDERED: ATROPINE SULFATE 0.1 MG/ML 10ML SYR IV PRN (06:30)
[2024-01-31] MEDS ORDERED: ONDANSETRON INJ 2 MG/ML 2 ML VIAL IV PRN ×2 (06:30→11:09)
[2024-01-31] MEDS: LR 60ML/HR IV SCH (06:42)
[2024-01-31] MEDS: LR 15ML/HR IV SCH (06:42)
[2024-01-31] MEDS: GABAPENTIN 600 MG DOSE PO SCH (06:42)
[2024-01-31] MEDS: ACETAMINOPHEN 500 MG TAB PO SCH (06:42)
[2024-01-31] MEDS: CeleBREX 200 MG CAP PO SCH (06:42)
[2024-01-31] MEDS ORDERED: LIDOCAINE 2% 2 ML VIAL/AMP(20MG/ML) INFIL ONE (07:01)
[2024-01-31] MEDS ORDERED: fentaNYL citrate PF 100 MCG/2 ML VIAL ONE ×2 (07:01→08:28)
[2024-01-31] MEDS ORDERED: MIDAZOLAM HCL 1 MG/ML 2ML VIAL ONE (07:01)
[2024-01-31] MEDS ORDERED: ROCURONIUM BROMIDE 10 MG/ML 5 ML VIAL IV ONE (07:01)
[2024-01-31] MEDS ORDERED: PROPOFOL IV EMULSION 10 MG/ML 20 ML VIAL IV ONE (07:01)
[2024-01-31] MEDS ORDERED: DexMEDEtomidine HCL IV 100 MCG/ML VIAL IV ONE (07:08)
--- NOTE | 2024-01-31 07:39 | History & Physical Bridge Note ---
Date of Service January 31, 2024 History & Physical Bridge Note I have examined the patient, reviewed the History & Physical and in the interval since the performance of the History & Physical I have noted the following changes of clinical significance: no changes noted
--- NOTE | 2024-01-31 07:39 | History & Physical Report ---
Date of Service January 31, 2024 Assessment & Plan (1) Cervical radiculopathy: Plan: Anterior cervical discectomy and fusion C4-C5 C5-C6 History of Present Illness Chief Complaint: Neck and arm pain Primary Care Provider: Leander Paredes MD This is a 58-year-old female presents for chronic persistent neck and arm pain after failing course of nonoperative care is here for surgical invention. Allergies Allergy/AdvReac Type Severity Reaction Status Date / Time No Known Allergies Allergy Verified 01/10/24 09:39 Home Medications Medication Instructions Recorded Confirmed Type atorvastatin 20 mg tablet (Lipitor) 20 mg PO QAM 04/23/23 01/31/24 History levothyroxine 88 mcg tablet 88 mcg PO Q OTHER DAY 04/23/23 01/31/24 History (Synthroid) pregabalin 150 mg capsule (Lyrica) 150 mg PO TID 04/23/23 01/31/24 History tramadol 50 mg tablet 50 mg PO Q6H PRN Pain 04/23/23 01/31/24 History budesonide 160 mcg-glycopyr 9 2 inh inhalation BID 07/03/23 01/31/24 History mcg-formot 4.8 mcg/actuation HFA inhaler (Breztri Aerosphere) levothyroxine 100 mcg tablet 100 mcg PO Q OTHER DAY 07/03/23 01/31/24 History (Synthroid) celecoxib 200 mg capsule (Celebrex) 200 mg PO BID 01/10/24 01/31/24 History esomeprazole magnesium 40 mg 20 mg PO QAM 01/10/24 01/31/24 History capsule,delayed release (Nexium) hydrocodone 5 mg-acetaminophen 325 1 tab PO Q6H PRN Pain 01/10/24 01/31/24 History mg tablet lorazepam 0.5 mg tablet 0.5 mg PO TID PRN Anxiety 01/10/24 01/31/24 History Past Med/Surg History Problem List Encounter for pre-operative examination Cervical facet joint syndrome Cervical spondylosis Cervical radiculopathy Cervicalgia COPD (chronic obstructive pulmonary disease) Hypothyroid Migraine Nephrolithiasis Medical History Acid reflux Anxiety Carpal tunnel syndrome Cervical facet joint syndrome Cervical spondylosis Cervicalgia COPD (chronic obstructive pulmonary disease) "controlled" Diverticular disease Benny thyroiditis "controlled" History of COVID-19 2020 History of kidney stones passed on own Hx of sciatica Hypothyroid Lumbar pain hx of 3 nerve ablations Migraine Osteoarthritis Surgical History H/O hemorrhoidectomy H/O tubal ligation History of bilateral tubal ligation History of colonoscopy History of dilatation and curettage History of endoscopic sinus surgery History of tooth extraction Family History Father Heart disease Hypertension Mother Heart disease Daughter History of anesthesia reaction got hives and itching, given benadryl post op and was then okay Social History Smoking Status: Former smoker Smoking End Date: Quit 12 yrs ago; Second Hand Exposure: No; Do You Dip or Chew Tobacco: No; Tobacco Cessation Education Requested by Patient: No Hx Alcohol Use: Yes Alcohol type: wine Hx Substance Use: No Preferred Language: Divehi Communication Ability: Effective Visual Impairment: No Limitations Hearing Ability: Normal Detective Lieutenant Required: No Beliefs That Will Affect Care: None marital status: Current Living Situation: Spouse current occupational status: employed current occupation: [employer] Other Information That Helps Us Care for You: No Feels Safe at Home: Yes Safety Concerns: Feels Safe At This Time Assistive Devices: Denture - Upper and Glasses Physical Exam Physical Exam: Patient is alert and oriented heart regular rhythm Lungs clear Results & Data Results & Data Vital Signs (Past 12 Hours) Vital Signs Temp Pulse Resp BP Pulse Ox O2 Del Method 01/31/24 06:25 36.5 C 75 20 100/66 97 Room Air
[2024-01-31] MEDS: ceFAZolin 2000MG 2,000 MG/15 ML SYR IV SCH (07:55)
[2024-01-31] MEDS: ceFAZolin 330 MG/ML 1 GM VIAL ONE (09:08)
--- NOTE | 2024-01-31 09:14 | Operative Report ---
Post Operative Report Pre & Post Diagnosis Operation Date: 01/31/24 07:45 Pre-Op Diagnosis: Cervical Radiculopathy, Cervical Pain Post-Op Diagnosis: Cervical Radiculopathy, Cervical Pain I identified the patient and participated in the time-out.: Yes Procedure Operation Date: 01/31/24 07:45 Actual Procedures #1 anterior cervical discectomy with bilateral foraminotomies C4-C5 C5-C6. #2 anterior cervical arthrodesis C4-C5 C5-C6. #3 placement of Spira 7 mm cage filled with os design at C4-C5 C5-C6. #4 placement of Z plate and screws C4-C6. Surgeon Roland Gutierrez, DO Adjunct Nursing Faculty Cedric Willson Estimated Blood Loss 10 Findings Consistent with Post-Op Diagnosis Specimens None Indications This is a 58-year-old female who presents above-mentioned diagnosis after failing course of nonoperative care she is here for surgical invention. Description of Procedure Patient was met with identified informed consent obtained. Patient was then taken to the operative suite underwent patient placed in supine position on the Mg table with a head Perdomo head waiter/waitress. All bony prominences well- padded eyes inspected to ensure no external precipice upon them. This point the anterior cervical spine was prepped and draped normal sterile fashion. With the assistance of fluoroscopy identified the C5 vertebral body and a transverse incision was placed along the right anterior aspect of the cervical spine overlying this region. Blunt dissection with the assistance of bipolar el ectrocautery is then performed down to and exposing the anterior cervical spine from C4-C6. Self-retaining retractors placed. Informed complete discectomy of C4-C5 out to the uncovertebral joints bilaterally. [place] distracting pins utilized to assist in visualization. Removed all posterior annular fibers longitudinal ligament bilateral foraminotomies were performed. Endplates burred to subcortical bleeding bone and a 7 mm spiral cage filled with os design tapped in position. Then proceeded to see 5 C6. Again complete discectomy performed up to the uncovertebral joints bilaterally. [place] distracting pins again utilized. Removed all posterior annular fibers longitudinal ligament bilateral foraminotomies performed. Endplates were to subcortical bleeding bone and a second 7 mm spiral cage filled with os design bone graft tapped into position. Distracting and pressors removed. All anterior osteophytes burred to smooth cortical surface and a plate and screws applied with the assistance of fluoroscopy. The incision was then copiously irrigated explored to ensure no damage to surrounding structures remaining bleeding. 10 round HOANG drain inserted. Incision was then closed with 2 Vicryl in the fascia and a 4 Monocryl for final skin closure. Steri-Strips and sterile dressing placed. Patient waken taken to PACU in stable condition. Please note spinal cord monitoring visualized at the procedure no changes noted. Cedric Willson was present at the entire procedure involved patient positioning complex portions of the surgery and final skin closure. Im ordering 10 grams of Triple [place] Collagen Powder ([employer] [id number]) to treat an incision wound that was caused by a spine procedure. The incision is approximately 2 cm(W) x 4 cm(L) into the joint (D) in size and is a full thickness wound. Triple [place] collagen comes in 1 gram packets so 10 packets were ordered. Given the size of the wound, with light to moderate exudate I chose to order a 10 day supply. The patient will be provided instructions for proper application of the collagen wound kit. The patient will be asked to apply the collagen powder daily and then cover it with sterile dressings dispensed. Collagen was selected as I expect the collagen to attract monocytes and fibroblasts, act as a sacrificial substrate for MMPs, and ultimately proved a matrix for tissue and vessel growth. The collagen will act as a primary dressing in this scenario. It is medically necessary for proper healing of these wounds to improve bioavailability and contact with each wound surface, this is also to help prevent infection of wounds and promote healing ultimately leading to a better healing outcome and limit the risk of infection. I attest to the content of the Intraoperative Record and any orders documented therein. Any exceptions are noted below.
[2024-01-31] MEDS ORDERED: SUGAMMADEX SODIUM 200 MG/2 ML VIAL IV ONE (09:15)
[2024-01-31] MEDS: FLOSEAL HEMOSTATIC MATRIX 10ML TOP ONE (09:25)
--- NOTE | 2024-01-31 09:44 | Fluoroscopy Report ---
FL cervical 2-3V CLINICAL HISTORY: C4-C5, C5-C6 ACDF COMPARISON STUDY: Cervical spine MRI 08/13/2021 FLUOROSCOPY TIME: 12.9 seconds FLUOROSCOPY IMAGES: 2 EXPOSURE DOSE: 0.84 mGy FINDINGS: Anterior plate and screw fusion with discectomy noted at C4-C6. Endotracheal tube with ante rior surgical sponge seen on the first image. Surgical drainage catheter also noted. Note that the im ages were submitted following completion of the surgery. IMPRESSION: Fluoroscopic assistance as above. ACT 112: Negative or not required by law. Electronically signed by: Aaron Zhang M.D. 01/31/2024 9:43 AM
[2024-01-31] MEDS: fentaNYL citrate PF 100 MCG/2 ML VIAL IV PRN (10:09)
[2024-01-31] MEDS ORDERED: traMADol HCL 50 MG TABLET PO PRN (11:09)
[2024-01-31] MEDS ORDERED: DO NOT ADMINISTER PNEUMOCOCCAL VACCINE PRN (11:09)
[2024-01-31] MEDS ORDERED: ONDANSETRON 4 MG OD TAB PO PRN (11:09)
[2024-01-31] MEDS ORDERED: RACEPINEPHRINE 2.25% NEBU SOLN 0.5 ML VIAL INH PRN (11:09)
[2024-01-31] MEDS ORDERED: MAGNESIUM HYDROXIDE SUSP 30 ML UDC PO PRN (11:09)
[2024-01-31] MEDS ORDERED: diphenhydrAMINE Capsule 25 MG CAP PO PRN (11:09)
[2024-01-31] MEDS ORDERED: NALOXONE HCL 0.4 MG/1 ML VIAL/CARP IV PRN (11:09)
[2024-01-31] MEDS ORDERED: PROMETHAZINE 12.5 MG/50.5 ML BAG IV PRN (11:09)
[2024-01-31] MEDS ORDERED: ACETAMINOPHEN 500 MG TAB PO PRN (11:09)
[2024-01-31] MEDS ORDERED: HYDROmorphone INJ 0.5 MG/0.5 ML SYR IV PRN (11:09)
[2024-01-31] MEDS ORDERED: dexAMETHasone 8 MG in SYRINGE 0 ML IV PRN (11:09)
[2024-01-31] MEDS ORDERED: FAMOTIDINE 20 MG TAB PO PRN (11:09)
[2024-01-31] MEDS ORDERED: LORazepam 2 MG/1 ML VIAL IV PRN (11:09)
[2024-01-31] MEDS ORDERED: DO NOT ADMINISTER FLU VACCINE PRN (11:09)
[2024-01-31] MEDS ORDERED: LORazepam 0.5 MG TAB PO PRN ×2 (11:09)
[2024-01-31] MEDS ORDERED: SOD PHOSPHATE/SOD BIPHOSPHATE ENEMA 132 ML BTL PR PRN (11:09)
[2024-01-31] MEDS ORDERED: METOCLOPRAMIDE HCL INJ 5 MG/ML 2 ML VIAL IV PRN (11:09)
[2024-01-31] MEDS ORDERED: bisacodyL 10 MG SUPP PR PRN (11:09)
[2024-01-31] MEDS ORDERED: ALUMINUM/MAGNESIUM SUSP 30 ML UDC PO PRN (11:09)
[2024-01-31] MEDS ORDERED: hydrOXYzine HCl 25 MG TAB PO PRN (11:09)
[2024-01-31] MEDS ORDERED: ACETAMINOPHEN 1,000 MG/100 ML VIAL IV PRN (11:09)
[2024-01-31] MEDS: LACTATED RINGER'S 1,000 ML IV SCH (11:24)
[2024-01-31] MEDS: HYDROmorphone INJ 1 MG/ML SYRINGE IV PRN (11:41)
--- NOTE | 2024-01-31 12:04 | Anesthesiology Progress Note ---
Date of Service January 31, 2024 Anesthesia Post Procedure Vital Signs Vital Signs: Temp Pulse Pulse Pulse Resp BP Pulse Ox 01/31/24 11:50 90 18 115/69 100 01/31/24 11:20 84 18 110/66 01/31/24 11:09 88 20 96 01/31/24 10:48 97.5 F L 79 10 L 99/68 L 95 01/31/24 10:35 78 8 L 105/66 94 01/31/24 10:25 85 10 L 108/70 96 01/31/24 10:15 84 19 119/65 95 01/31/24 10:05 84 21 122/70 96 01/31/24 09:55 89 14 111/71 92 01/31/24 09:45 89 11 L 121/69 96 01/31/24 09:35 96.8 F L 90 12 132/79 98 01/31/24 06:25 97.7 F 75 20 100/66 97 O2 Del Method O2 Flow Rate 01/31/24 11:50 Nasal Cannula 2 01/31/24 11:20 Nasal Cannula 2 01/31/24 11:09 Nasal Cannula 3 01/31/24 10:48 Nasal Cannula 2 01/31/24 10:35 Nasal Cannula 2 01/31/24 10:25 Nasal Cannula 2 01/31/24 10:15 Nasal Cannula 2 01/31/24 10:05 Nasal Cannula 2 01/31/24 09:55 Room Air 01/31/24 09:45 Room Air 01/31/24 09:35 Oxymask 7 01/31/24 06:25 Room Air Pain Intensity Bilateral Arm: Pain Intensity: 4 Transfer of Care Handoff Completed per policy Notes Mental Status: alert / awake / arousable and participated in evaluation Patient Amnestic to Procedure: Yes Nausea / Vomiting: adequately controlled Pain: adequately controlled Airway Patency, RR, SpO2: stable & adequate BP & HR: stable & adequate Hydration State: stable & adequate Anesthetic Complications: no major complications apparent and Pt Satisfied with anesthetic care
[2024-01-31] MEDS: PREGABALIN 150 MG CAP PO SCH (14:00)
[2024-01-31] MEDS: oxyCODONE HCL IR 5 MG TAB (IMMEDIATE RELEASE) PO PRN (14:00)
[2024-01-31] MEDS: ceFAZolin 1000MG 1,000 MG/7.5 ML SYR IV SCH (17:13)
[2024-01-31] MEDS: DOCUSATE SODIUM/SENNA 50/8.6MG TAB PO SCH (20:03)
[2024-02-01 03:46] VITALS: TEMP 97.9
[2024-02-01] MEDS: LEVOTHYROXINE SODIUM 100 MCG TABLET PO SCH (05:28)
[2024-02-01] MEDS: POLYETHYLENE (MIRALAX) 17 GM PACK PO SCH (05:29)
[2024-02-01 06:01] VITALS: BP 100/62; O2SAT 92
[2024-02-01 07:31] VITALS: PULSE 80; RESP 15
--- NOTE | 2024-02-01 08:41 | Discharge Summary ---
Date of Service February 01, 2024 Admission HPI Per Admitting Provider This is a 58-year-old female presents for chronic persistent neck and arm pain after failing course of nonoperative care is here for surgical invention. Principal Diagnosis Cervical spinal stenosis with radiculopathy Discharge Data Allergies Allergy/AdvReac Type Severity Reaction Status Date / Time No Known Allergies Allergy Verified 01/10/24 09:39 Procedures Performed Operation Date: 01/31/24 07:45 Actual Procedures p C4-C5, C5-C6 Anterior Cervical Discectomy and Fusion, Spinal Cord Monitoring(Not Applicable) - Roland Gutierrez DO Ordered Studies 01/31/24 07:00 [place] cervical 2-3V Routine Hospital Course (1) Cervical radiculopathy: Patient underwent anterior cervical discectomy and fusion tolerated as well as taken to orthopedic for postoperative. Postoperatively she was swallowing well. No hoarseness. Arm symptoms improved. Excellent strength testing. HOANG drain decreasing appropriately. Subsequent discharge home. Discharge orders instructions on the chart for further review. Total Time Total Time Spent Total Time Spent (In Minutes): 20 minutes Discharge Plan Discharge Items Patient Disposition: Home - Self-Care Reason For Visit: POST OP Discharge Diagnosis: Cervical radiculopathy Activity: As commented below Non-emergency contact: Primary Care Provider Call non-emergency contact if: you have any medication questions Follow-up/Referrals: Leander Paredes MD [Primary Care Provider] - Diet: Regular Addtl Attending Provider Instructions: ACTIVITY RECOMMENDATIONS: SELF CARE INSTRUCTIONS AFTER CERVICAL FUSIONS 1. No smoking. Smoking drastically decreases the chance of a solid fusion. 2. No bending, lifting more than 5 pounds, or twisting (roll like a log when turning in bed). 3. You may shower 3 days after surgery. Thoroughly dry wound. Do not soak in the tub. 4. Cervical collar: Must be worn at all times including sleeping. You may remove the brace only to bath, eat and if you are sitting in a recliner. 5. Please walk as much as you can for exercise. Gradually increase the distance that you walk as your endurance increases. SPECIAL CARE INSTRUCTIONS: VERY IMPORTANT TO READ AND REVIEW A. Do not take any anti-inflammatory medications (i.e. Indocin, Advil, Aspirin, Naprosyn, Aleve, Motrin, etc.) as these may inhibit the chance of a solid fusion. Tylenol is okay to take. B. Your surgical incision has been closed with a cosmetic suture under the skin that will dissolve in about 6 weeks. In 14 days, you can use a pair of clean scissors and cut the suture that is left outside of the skin at the ends of your incision. C. Complications are uncommon, but please contact us if you have any signs or symptoms of: 1. wound infection (fever higher than 102.5 degrees F, redness, separation of wound, drainage, or increasing pain from the incision) 2. blood clots in legs (pain, swelling, redness and warmth in legs) 3. urinary tract infection (fever higher than 102.5 degrees, burning upon urination or increased frequency of urination) 4. nerve problems (inability to walk on your toes or heels, numbness, loss of bowel or bladder control) 5. any other symptoms that concern you. D. Please call the office at if you have any concerns or questions about your operation or recovery. MANAGING PAIN AFTER SPINAL SURGERY 1. Narcotic medication is intended for short-term use and will be provided for surgical pain. Surgical pain usually lasts for a period of 4-6 weeks. Narcotic medication includes Percocet, Vicodin, Darvocet, Tylenol #3 or Lortab. 2. Longer-term pain is more appropriately treated with non-narcotic medication such as Tylenol ES. 3. Muscle spasm is not appropriately treated with narcotics. Muscle relaxers such as Soma, Flexeril or Skelaxin can be used along with Tylenol ES. 4. Remember that we all live with some "aches and pains". This is not unusual or uncommon after an injury or as we get older. 5. We will provide appropriate medication within the normal guidelines of their prescribed use. We will also be very cautious and aware of potential abuse and extended duration of patients' medication needs. 6. Please allow 2-3 days to process refills. Prescriptions will not be mailed but must be picked up at the office. FOLLOW UP VISIT: Keep your scheduled follow-up appointment. Any questions, please call the office at . Pending Studies at Discharge: No Stand-Alone Forms: [employer], Smoking Cessation Medications and DC Order Prescriptions: New tramadol 50 mg tablet 50 mg PO Q6H PRN (Reason: pain, moderate) Qty: 20 0RF oxycodone 5 mg tablet 5 mg PO Q6H PRN (Reason: pain) Qty: 20 0RF Continued levothyroxine [Synthroid] 100 mcg tablet 100 mcg PO Q OTHER DAY Patient Comments: alternates with the 88mcg Rx Instructions: T,Thurs,Sat,Sun Breztri Aerosphere 160-9-4.8 mcg/actuation HFA aerosol inhaler 2 inh inhalation BID levothyroxine [Synthroid] 88 mcg tablet 88 mcg PO Q OTHER DAY Patient Comments: alternates with the 100mcg Rx Instructions: 88 mcg orally Mon, Wed, Fri; atorvastatin [Lipitor] 20 mg tablet 20 mg PO QAM pregabalin [Lyrica] 150 mg capsule 150 mg PO TID tramadol 50 mg tablet 50 mg PO Q6H PRN (Reason: Pain) celecoxib [Celebrex] 200 mg Capsule 200 mg PO BID hydrocodone-acetaminophen 5-325 mg Tablet 1 tab PO Q6H PRN (Reason: Pain) lorazepam 0.5 mg Tablet 0.5 mg PO TID PRN (Reason: Anxiety) esomeprazole magnesium [Nexium] 40 mg Capsule,Delayed Release(Dr/Ec) 20 mg PO QAM Discharge Orders: Discharge Order (Routine); Ordered 02/01/24 Ordered By: Roland Gutierrez Admission Data Admit Date/Time: 01/31/24 09:17 Attending Provider: Roland Gutierrez Admit Provider: Roland Gutierrez Primary Care Provider: Leander Paredes
[2024-02-01] MEDS: dexAMETHasone 6 MG in SYRINGE 0 ML IV SCH (09:19)
[2024-02-01] MEDS: ATORVASTATIN 20 MG TAB PO SCH (09:19)
[2024-02-01] MEDS: PANTOprazole 40 MG TAB PO SCH (09:19)
[2024-02-01] MEDS: UMECLIDINIUM/VILANTEROL 62.5/25MCG 7 PUFFS/INHALER INH SCH (09:19)
[2024-02-01] MEDS: FLUTICASONE FUROATE 200MCG 14 PUFFS/INHALER INH SCH (09:19)
[2024-02-03] MEDS ORDERED: LEVOTHYROXINE SODIUM 88 MCG TABLET PO SCH (06:30)
== END 2024-02-01 09:59 | disposition home or self-care (01) ==
LOC: 3E 06:03 → ASU 06:03